=== PATIENT | male | born 1990 | race American Indian/Alaskan Native ===

== ENCOUNTER 2025-04-11 08:10 | Emergency (ER) | payer OTHER ==
[~2025-04-11] VITALS: Ht 180.3 cm; Wt 77.1 kg
[2025-04-11] MEDS ORDERED: ACETAMINOPHEN 500 MG GEL..CAP PO ONE (08:22)
[2025-04-11] MEDS ORDERED: 0.9 % SODIUM CHLORIDE 1,000 ML IV SCH (09:30)
[2025-04-11] MEDS ORDERED: FAMOTIDINE/PF 20 MG/2 ML VIAL IV ONE (09:30)
[2025-04-11] MEDS ORDERED: GUAIFENESIN 200 MG/10 ML BLIST.PACK PO ONE ×2 (09:30→09:35)
[2025-04-11] MEDS ORDERED: FAMOTIDINE/PF 20 MG/2 ML VIAL ONE (09:36)
[2025-04-11 10:15] LABS: BASO % 0.6 % (0.1-1.2); EOS # 0.01 (0.04-0.54); EOS % 0.1 % (0.7-7.0); LYMPH # 1.27 (1.18-3.74); LYMPH % 18.6 % (19.3-53.1); MEAN PLATELET VOLUME 10.90 fl (9.4-12.4); MONO # 0.69 (0.24-0.82); MONO % 10.1 % (4.7-12.5); NEUT # 4.80 (1.56-6.13); NEUT % 70.5 % (34.0-71.1); RED CELL DISTRIBUTION WIDTH 11.1 % (11.6-14.4)
[2025-04-11 10:27] LABS: ALT/SGPT 27.0 U/L (12-78); AST/SGOT 23.0 U/L (15-37); BILIRUBIN TOTAL 0.54 mg/dL (0.3-1.2); BUN CREA RATIO 13.0 (7.0-25.0); CREATININE SERUM 1.14 mg/dL (0.70-1.30); GFR 74.44; GLOBULINA 4.1 G/DL (2.4-3.5); GLUCOSE FASTING 119.0 mg/dL (65-100); OSMOLALITY SERUM 278.0 MOSM/KG (275-295)
[2025-04-11 10:37] LABS: COVID-19 AG NEGATIVE (NEGATIVE)
[2025-04-11] MEDS ORDERED: PEPCID AC20 MG PO (10:47)
[2025-04-11] MEDS ORDERED: MUCINEX D ER 11 EACH PO (10:47)
[2025-04-11] MEDS ORDERED: INTESTINEX680 M1 PO (10:47)
[2025-04-11] MEDS ORDERED: OSEL75CA PO (10:47)
== END 2025-04-11 11:18 | disposition home or self-care (01) ==
LOC: ER 08:10
PROVIDERS: Student in an Organized Health Care Education/Training Program
DX: J10.1 Influenza due to other identified influenza virus with other respiratory manifestations (principal); R50.9 Fever, unspecified; R05.8 Other specified cough; Z20.822 Contact with and (suspected) exposure to COVID-19